=== PATIENT | female | born 1980 | race Caucasian/White ===

== ENCOUNTER 2017-09-24 12:24 | Emergency (ER) | payer OTHER ==
--- NOTE | 2017-09-24 13:04 | ED Physician Documentation ---
PD HPI LOWER EXT INJURY - Stated complaint Stated Complaint: LT KNEE INJ - Chief complaint Chief Complaint: Ext Problem - History obtained from History obtained from: Patient, Family - History of Present Illness PD HPI LOW EXT INJURY LOCATION: Left, Knee Type of injury: Other (Patient is a 36-year-old female who presents to the emergency department complaining of left knee pain after stepping hard going into first [place] while playing kickball today. [place] like her knee gave out on her. States felt a pop.) Where injury occurred: [place] Timing - onset: How many hours ago (2) Timing - duration: Hours (2) Timing - details: Abrupt onset Pain level max: 6 Pain level now: 4 Improved by: Rest Worsened by: Moving, Palpating, Other (Walking) Associated symptoms: Swelling. No: Numbness, Tingling Contributing factors: No: Anticoagulated Similar symptoms before: Has not had sx before Recently seen: Not recently seen - Additional information Additional information: Patient states that she now feels unstable with lateral movement Review of Systems : denies: Now EGA Skin: denies: Rash Musculoskeletal: denies: Neck pain, Back pain Neurologic: denies: Focal weakness, Numbness PD PAST MEDICAL HISTORY - Past Medical History Past Medical History: No Other Past Medical History: Cavus pectorus - Past Surgical History Past Surgical History: No - Allergies Allergies/Adverse Reactions: Allergies Allergy/AdvReac Type Severity Reaction Status Date / Time No Known Drug Allergies Allergy Verified 09/24/17 12:32 - Social History Does the pt smoke?: No Smoking Status: Never smoker Does the pt drink ETOH?: Yes Does the pt have substance abuse?: No - Immunizations Immunizations are current?: Yes - POLST Patient has POLST: No PD ED PE NORMAL - Vitals Vital signs reviewed: Yes - General General: Alert and oriented X 3, No acute distress - HEENT HEENT: Moist mucous membranes - Derm Derm: Warm and dry - Extremities Extremities: Other (Left knee has mild diffuse swelling. Mild bony tenderness throughout. She has laxity to the lateral collateral ligament. MCL, ACL, PCL appear intact. Unable to tolerate meniscal testing well.) - Neuro Neuro: Alert and oriented X 3 - Psych Psych: Normal mood, Normal affect Results - Vitals Vitals: Vital Signs - 24 hr 09/24/17 09/24/17 12:28 14:47 Temperature 36.4 C L Heart Rate 52 L 62 Respiratory 16 12 Rate Blood Pressure 110/69 109/76 O2 Saturation 100 99 Oxygen O2 Source Room air - Rads (name of study) Left knee x-ray Radiology: Prelim report reviewed, EMP read contemporaneously, See rad report ( normal) PD MEDICAL DECISION MAKING - ED course Complexity details: reviewed results, re-evaluated patient, considered differential, d/w patient, d/w family ED course: Patient is a 36-year-old female who presents to the emergency department what appears to be an injury to the lateral collateral ligament of the left knee. Possible meniscal injury as well? Placed in a articulating knee brace and she is ambulating well with this. Will utilize crutches as needed, but may weight- bear as tolerated. We will have her follow-up with her doctor and/or orthopedics for further evaluation. Will need a repeat evaluation and possible MRI once the swelling has decreased. Patient counseled regarding signs and symptoms for which I believe and urgent re-evaluation would be necessary. Patient with good understanding of and agreement to plan and is comfortable going home at this time This document was made in part using voice recognition software. While efforts are made to proofread this document, sound alike and grammatical errors may occur. - Sepsis Event Vital Signs: Vital Signs - 24 hr 09/24/17 09/24/17 12:28 14:47 Temperature 36.4 C L Heart Rate 52 L 62 Respiratory 16 12 Rate Blood Pressure 110/69 109/76 O2 Saturation 100 99 Oxygen O2 Source Room air Departure - Departure Disposition: 01 Home, Self Care Clinical Impression: Knee LCL sprain Qualifiers: Encounter type: initial encounter Laterality: left Qualified Code(s): S83.422A - Sprain of lateral collateral ligament of left knee, initial encounter Condition: Good Instructions: ED Sprain Knee Collateral Ligaments Follow-Up: [facility] [Provider Group] - Within 1 week Provider,Other [Primary Care Provider] - Within 1 week Comments: Keep the brace on until released by your doctor. Return if you worsen. Your x- rays are normal today. He will need a repeat evaluation once the swelling has decreased to determine the extent of damage to your knee. You may also need an MRI once the swelling has decreased. This will need to be ordered by your doctor or orthopedics Discharge Date/Time: 09/24/17 14:48
--- NOTE | 2017-09-24 14:00 | XRAY Report ---
Procedure Date: 09/24/2017 Accession Number: [id number] / [id number] Procedure: XR - Knee 4 View LT CPT Code: FULL RESULT: EXAM: LEFT KNEE RADIOGRAPHY EXAM DATE: 09/24/2017 01:35 PM. CLINICAL HISTORY: L knee pain playing kickball. COMPARISON: None. TECHNIQUE: 4 views. FINDINGS: Bones: Normal. No fractures or bone lesions. Joints: Normal. No effusion. No subluxations. Soft Tissues: Normal. No soft tissue swelling. IMPRESSION: Negative left knee. [facility]
[2017-09-24 14:47] VITALS: BP 109/76
== END 2017-09-24 14:48 | disposition home or self-care (01) ==
LOC: ED 12:24
DX: S83.422A Sprain of lateral collateral ligament of left knee, initial encounter (principal); X50.1XXA Overexertion from prolonged static or awkward postures, initial encounter; Y93.69 Activity, other involving other sports and athletics played as a team or group
CPT/HCPCS: 99283

== ENCOUNTER 2017-10-23 14:56 | Outpatient (CLI) | payer OTHER ==
--- NOTE | 2017-10-24 14:43 | MRI Report ---
Reason: SPRAIN OF UNSPECIFIED SITE OF LEFT KNEE Procedure Date: 10/23/2017 Accession Number: [id number] / [id number] Procedure: MRI - Knee LT W/O CPT Code: FULL RESULT: EXAM: LEFT KNEE MRI WITHOUT CONTRAST EXAM DATE: 10/23/2017 03:52 PM. CLINICAL HISTORY: Sprain of unspecified site of left knee. COMPARISON: Knee 4 view left 09/24/2017 1:23 PM. TECHNIQUE: Multiplanar, multisequence T1-weighted and fluid-sensitive sequences of the knee without contrast. Other: None. FINDINGS: Cruciate ligaments: The posterior cruciate ligament appears intact. The anterior cruciate ligament appears torn proximally. Medial meniscus: Intact. No tear is identified. Lateral meniscus: Intact. No tear is identified. Collateral ligaments: Some edema adjacent to the medial collateral ligament. Possible partial disruption of some of the anterior fibers. Fibular collateral ligament appears intact. Bones and articular surfaces: Mild cartilage thinning in the weightbearing medial compartment. Marrow edema consistent with bone contusions at the posterior aspect of the medial greater than lateral tibial plateau. Nondisplaced small peripheral fracture at associated with bone contusion at the posterior superior margin of the medial tibial plateau. Small joint effusion. Mild surface cartilage irregularity over the patella with some heterogenous cartilage signal. Extensor mechanism: The patellar tendon and quadriceps insertion appear intact. IMPRESSION: 1. Tear of the anterior cruciate ligament with corresponding bone contusions as well as tiny fracture at the posterior periphery of the medial tibial plateau. 2. Grade 2 sprain of the medial collateral ligament. 3. Small joint effusion. [facility] MUSCULOSKELETAL RADIOLOGY SECTION
== END 2017-10-23 14:57 | disposition home or self-care (01) ==
LOC: DI 14:56
PROVIDERS: ATTEND Physician Assistant Medical
DX: S82.142A Displaced bicondylar fracture of left tibia, initial encounter for closed fracture (principal); S83.512A Sprain of anterior cruciate ligament of left knee, initial encounter; S83.412A Sprain of medial collateral ligament of left knee, initial encounter; M25.462 Effusion, left knee